=== PATIENT | male | born 1995 | race Caucasian/White ===

== ENCOUNTER 2019-01-25 17:55 | Emergency (ER) | payer MEDICAID ==
[~2019-01-25] VITALS: Ht 190.5 cm; Wt 79.4 kg
[2019-01-25] MEDS ORDERED: VANCOMYCIN IV 1,000 MG in IV DEXTROSE 5% 250 ML IV ONE (18:30)
[2019-01-25] MEDS ORDERED: SULFAMETH/TRIMETH 800/160 MG TABLET PO ONE (18:30)
[2019-01-25 18:52] LABS: BASOPHILS % (AUTO) 0.3 % (0.0-2.0); EOSINOPHILS # (AUTO) 0.1 K/uL (0.0-0.7); EOSINOPHILS % (AUTO) 2.1 % (0.0-7.0); HEMOGLOBIN 13.5 g/dL (12.5-16.3); LYMPHOCYTES # (AUTO) 1.5 K/uL (20.0-40.0); LYMPHOCYTES % (AUTO) 24.9 % (20.5-51.5); MEAN CORPUSCULAR HGB CONC 34 g/dL (32.5-36.3); MONOCYTES # (AUTO) 0.7 K/uL (2.0-10.0); MONOCYTES % (AUTO) 10.7 % (0.0-11.0); NEUTROPHILS # (AUTO) 3.8 K/uL (1.8-8.9); PLATELET COUNT (AUTO) 166 K/uL (152-348); WHITE BLOOD COUNT (AUTO) 6.1 K/uL (3.6-10.2)
[2019-01-25] MEDS ORDERED: SULFAMETH/TRIMETH 800/160 MG TABLET ONE (18:52)
[2019-01-25] MEDS ORDERED: VANCOMYCIN IV 200 ML ONE (18:52)
[2019-01-25] MEDS ORDERED: LIDOCAINE 1%-EPI 1:100,000 20 ML VIAL IJ ONE (19:00)
[2019-01-25] MEDS ORDERED: SODIUM BICARBONATE 4.2 % (NEUT) 5 ML VIAL TP ONE (19:00)
[2019-01-25] MEDS ORDERED: TDAP DIPH,PERTUSS,TET VAC/PF 0.5 ML DISP.SYRIN IM ONE ×2 (19:00→19:17)
--- NOTE | 2019-01-25 19:05 | NUR ---
Report given to TEOFILO Melgar
[2019-01-25 19:20] LABS: CREATININE 0.9 mg/dL (0.6-1.3); POTASSIUM 4.1 mmol/L (3.5-5.1)
[2019-01-25 19:26] LABS: BILIRUBIN,DIRECT 0.3 mg/dL (0.0-0.2); BILIRUBIN,TOTAL 1.2 mg/dL (0.2-1.0); TOTAL PROTEIN, SERUM 7.6 g/dL (6.4-8.2)
[2019-01-25 19:59] VITALS: BP 110/75
--- NOTE | 2019-01-25 19:59 | NUR ---
Patient discharged to home in stable conditon. Written and verbal after care instructions given. Patient verbalizes understanding of instructions. Pt ambulated out of ER with steady gait, no acute signs of distress, VSS, all belongings taken, IV site discontinued.
== END 2019-01-25 20:00 | disposition home or self-care (01) ==
LOC: ER 17:55
DX: L02.414 Cutaneous abscess of left upper limb (principal); L03.114 Cellulitis of left upper limb; F11.10 Opioid abuse, uncomplicated; Z71.6 Tobacco abuse counseling; F17.290 Nicotine dependence, other tobacco product, uncomplicated
CPT/HCPCS: 10060; 36415; 80048; 80076; 84484; 85025; 85730; 87040 ×2; 90471; 90715; 96365; 99284; 99406; J3370; J3490 ×2; 70030-TC; A4663

== ENCOUNTER 2019-01-27 02:14 | Emergency (ER) | payer MEDICAID ==
[~2019-01-27] VITALS: Ht 190.5 cm; Wt 79.4 kg
--- NOTE | 2019-01-27 02:25 | NUR ---
admitted pt to er-rm 2a ambulatory for wound check. dr dennis came in & evaluated pt.
--- NOTE | 2019-01-27 02:30 | NUR ---
cleaned wound w/ ns & drsg applied.
[2019-01-27] MEDS ORDERED: SULFAMETH/TRIMETH 800/160 MG TABLET ONE (02:44)
[2019-01-27] MEDS ORDERED: SULFAMETH/TRIMETH 800/160 MG TABLET PO ONE (02:45)
--- NOTE | 2019-01-27 02:50 | NUR ---
Patient discharged to home in stable conditon. Written and verbal after care instructions given. Patient verbalizes understanding of instructions.
[2019-01-27 02:55] VITALS: BP 110/70
== END 2019-01-27 02:55 | disposition home or self-care (01) ==
LOC: ER 02:15
DX: Z48.01 Encounter for change or removal of surgical wound dressing (principal); F15.10 Other stimulant abuse, uncomplicated; F12.10 Cannabis abuse, uncomplicated
CPT/HCPCS: A4663

== ENCOUNTER 2021-08-15 23:47 | Emergency (ER) | payer MEDICAID, OTHER ==
[~2021-08-15] VITALS: Ht 188 cm; Wt 81.6 kg
[2021-08-16] MEDS ORDERED: CLINDAMYCIN 900MG/D5W 100ML IVPB **ER PYXIS ONLY IJ ONE (00:28)
[2021-08-16] MEDS ORDERED: HYDROCODONE/APAP 5-325MG TABLET ONE (00:29)
[2021-08-16] MEDS ORDERED: HYDROCODONE/APAP 5-325MG TABLET PO ONE (00:30)
[2021-08-16] MEDS ORDERED: CLINDAMYCIN PHOSPHATE IV 900 MG in IV DEXTROSE 5% 100 ML IV ONE (00:30)
[2021-08-16] MEDS ORDERED: HYDR-4209 PO (00:31)
[2021-08-16] MEDS ORDERED: CEPH500T PO (00:31)
[2021-08-16] MEDS ORDERED: CLIN300C12 PO (00:31)
--- NOTE | 2021-08-16 01:00 | NUR ---
cleansed wound with betadine and applied dressing as ordered by Dr Solis.
--- NOTE | 2021-08-16 01:19 | NUR ---
IV removed. Catheter intact and site benign. Pressure and 4x4 gauze applied to site. No bleeding noted.
--- NOTE | 2021-08-16 01:28 | NUR ---
Patient discharged to home in stable condition. Written and verbal after care instructions given. Patient verbalizes understanding of instructions. Stressed follow up or return to ER for worsening s/s.
[2021-08-16 01:29] VITALS: BP 108/60
== END 2021-08-16 01:30 | disposition home or self-care (01) ==
LOC: ER 23:51
DX: S80.811S Abrasion, right lower leg, sequela (principal); L03.115 Cellulitis of right lower limb; V00.131S Fall from skateboard, sequela; L97.811 Non-pressure chronic ulcer of other part of right lower leg limited to breakdown of skin; F15.10 Other stimulant abuse, uncomplicated; F17.210 Nicotine dependence, cigarettes, uncomplicated
CPT/HCPCS: 96365; 99284; J3490; A4663

== ENCOUNTER 2024-03-07 05:17 | Emergency (ER) | payer OTHER ==
[~2024-03-07] VITALS: Ht 177.8 cm; Wt 74.8 kg
[~2024-03-07 05:17] MED LIST: CEPH500C2 PO; CEPH500T PO; CLIN300C12 PO; HYDR-4209 PO; MUPI22OI2 TP; SULF1TAB48 PO
[2024-03-07] MEDS ORDERED: ACETAMINOPHEN 500 MG TABLET ONE (05:50)
[2024-03-07] MEDS: ACETAMINOPHEN 500 MG TABLET PO ONE (05:51)
[2024-03-07] MEDS ORDERED: AMOX-430 PO (05:52)
[2024-03-07] MEDS ORDERED: FLUT16SP16 BNOSTRILS (05:52)
[2024-03-07 06:02] VITALS: BP 128/77; TEMP 97.5; O2SAT 98
== END 2024-03-07 06:02 | disposition home or self-care (01) ==
LOC: ER 05:17
DX: S02.5XXA Fracture of tooth (traumatic), initial encounter for closed fracture (principal); K04.7 Periapical abscess without sinus; J01.90 Acute sinusitis, unspecified; J06.9 Acute upper respiratory infection, unspecified; Z79.899 Other long term (current) drug therapy; Z88.7 Allergy status to serum and vaccine; X58.XXXA Exposure to other specified factors, initial encounter; Y93.89 Activity, other specified; Y92.89 Other specified places as the place of occurrence of the external cause; Y99.8 Other external cause status
CPT/HCPCS: A4606; A4663; A9150